=== PATIENT | female | born 1965 | race African-American/Black ===

== ENCOUNTER 2021-07-29 12:26 | Inpatient (IN) | payer MEDICAID ==
[~2021-07-29] VITALS: Ht 160 cm; Wt 100.0 kg
[2021-07-29] MEDS ORDERED: LABETALOL HCL VIAL 20 MG/4 ML VIAL IV ONE (13:30)
[2021-07-29] MEDS ORDERED: LABETALOL 5MG/ML SYR 20 MG/4 ML SYRINGE IV NR (13:31)
[2021-07-29 14:06] LABS: BASOPHILS % 0.2 % (0.0-2.0); HEMATOCRIT. 37.9 % (36.0-48.0); HEMOGLOBIN. 12.5 g/dL (12.0-16.0); LYMPHOCYTES % 26.4 % (20.0-50.0); MEAN CORPUSCULAR HEMOGLOBIN 28.4 pg (28.0-32.0); MEAN CORPUSCULAR VOLUME 86.2 fL (81.0-99.0); MEAN PLATELET VOLUME 9.9 fl (7.4-10.4); MONOCYTES % 6.2 % (2.0-8.0); NEUTROPHILS % 67.2 % (40.0-76.0); PLATELET 248 x1000/uL (130-400)
[2021-07-29 14:09] LABS: CHLORIDE 110 mEq/L (98-107)
[2021-07-30] MEDS ORDERED: ACETAMINOPHEN 325MG TABLET PO PRN (10:15)
[2021-07-30] MEDS ORDERED: ONDANSETRON HCL 4MG/2ML INJ IV PRN (10:15)
[2021-07-30 11:00] VITALS: BP 149/59
[2021-07-30] MEDS ORDERED: B50 GT (13:11)
[2021-07-30] MEDS ORDERED: ABIL5 PO (13:11)
[2021-07-30] MEDS ORDERED: CELECOXIB 200MG CAPSULE PO SCH (15:00)
[2021-07-30] MEDS: AMLODIPINE 10MG TABLET PO SCH (15:23)
[2021-07-30 16:00] VITALS: BP 154/58
[2021-07-30] MEDS ORDERED: DIPHENHYDRAMINE 25MG CAPSULE PO PRN (17:45)
[2021-07-30 20:00] VITALS: BP 162/79
[2021-07-31] VITALS: BP 132/86
[2021-07-31 04:00] VITALS: BP 130/71
[2021-07-31 08:00] VITALS: BP 141/72
[2021-07-31] MEDS ORDERED: ASPIRIN 81MG TABLET PO SCH (09:00)
[2021-07-31] MEDS: AMLODIPINE 10MG TABLET PO SCH (09:00)
[2021-07-31] MEDS ORDERED: AMLO10TA80 PO (11:36)
[2021-07-31 12:00] VITALS: BP 135/75
[2021-07-31 12:33] VITALS: BP 135/75
== END 2021-07-31 13:22 | disposition home or self-care (01) | DRG 199 ==
LOC: ER 12:26 → MICUSO 16:54 → EDBEDREQTM 16:55 → EDBEDREQ 16:55 → 8WST 07-30 11:21
PROVIDERS: ADMIT Internal Medicine; ATTEND Internal Medicine
DX: I16.0 Hypertensive urgency (principal); E44.1 Mild protein-calorie malnutrition; E87.8 Other disorders of electrolyte and fluid balance, not elsewhere classified; R07.89 Other chest pain; E66.9 Obesity, unspecified; M25.512 Pain in left shoulder; Z82.49 Family history of ischemic heart disease and other diseases of the circulatory system; I10 Essential (primary) hypertension; Z68.39 Body mass index [BMI] 39.0-39.9, adult; Z71.3 Dietary counseling and surveillance
CPT/HCPCS: 36415; 71045; 80053; 83880; 84484; 85025; 93005; 93306; 99291; J3490; Q0163

== ENCOUNTER 2024-06-16 09:15 | Emergency (ER) | payer MEDICAID, OTHER ==
[~2024-06-16] VITALS: Ht 157.5 cm; Wt 79.0 kg
[~2024-06-16 09:15] MED LIST: ABIL5 PO; AMLO10TA80 PO; B50 GT
[2024-06-16 09:19] VITALS: O2SAT 99
[2024-06-16] MEDS ORDERED: FLUO20CA33 PO (09:39)
[2024-06-16 10:09] LABS: BASOPHILS % 0.8 % (0.0-2.0); DIFFERENTIAL COMMENT 0; EOSINOPHILS % 0.1 % (0.0-5.0); HEMATOCRIT. 42.6 % (36.0-48.0); HEMOGLOBIN. 13.6 g/dL (12.0-16.0); LYMPHOCYTES % 30.9 % (20.0-50.0); MEAN CORPUSCULAR HEMOGLOBIN 27.5 pg (28.0-32.0); MEAN CORPUSCULAR HGB CONC 31.9 g/dL (31.0-37.0); MEAN PLATELET VOLUME 10.2 fl (7.4-10.4); MONOCYTES % 6.8 % (2.0-8.0); NEUTROPHILS % 61.4 % (40.0-76.0); PLATELET 257 x1000/uL (130-400); RED BLOOD CELL COUNT 4.96 mill/uL (4.2-5.4); RED CELL DISTRIBUTION WIDTH 14.3 % (11.6-14.6); WHITE BLOOD COUNT 6.6 x1000/uL (4.5-11.0)
[2024-06-16 10:11] LABS: CHLORIDE 103 mEq/L (98-107); POTASSIUM 3.5 mEq/L (3.5-5.1); SODIUM 142 mEq/L (136-145)
[2024-06-16 10:13] LABS: CALCIUM 9.6 mg/dL (8.7-10.4); CARBON DIOXIDE 26 mEq/L (21-32)
[2024-06-16 10:18] LABS: CREATININE 0.9 mg/dL (0.6-1.0); GLUCOSE 131 mg/dL (70-105); UREA NITROGEN BLOOD 7 mg/dL (9-23)
[2024-06-16 10:19] LABS: ETHANOL BLOOD < 10 mg/dL (<10)
[2024-06-16 10:20] LABS: ACETAMINOPHEN < 2 ug/mL (10-30)
[2024-06-16 13:29] LABS: CLARITY URINE CLOUDY (CLEAR); COLOR URINE DARK YELLOW (YELLOW); GLUCOSE URINE NEGATIVE (NEGATIVE); KETONES URINE 4+ (NEGATIVE); LEUKOCYTE ESTERASE URINE 3+ (NEGATIVE); NITRITE URINE NEGATIVE (NEGATIVE); OCCULT BLOOD URINE NEGATIVE (NEGATIVE); PROTEIN URINE 1+ (NEGATIVE); SPECIFIC GRAVITY URINE 1.017 (1.005-1.030)
[2024-06-16 14:03] LABS: BACTERIA URINE 4+; SQUAMOUS EPITHELIAL CELL URINE 3+ /lpf (RARE/1+); WBC URINE 50-100 /hpf (0-2); YEAST URINE NONE SEEN
[2024-06-16 14:08] LABS: *AMPHETAMINES SCREEN URINE NEGATIVE (NEGATIVE)
[2024-06-16 14:09] LABS: *BARBITURATES SCREEN URINE NEGATIVE (NEGATIVE); *BENZODIAZEPINES SCREEN URINE NEGATIVE (NEGATIVE); *COCAINE SCREEN URINE NEGATIVE (NEGATIVE); CANNABINOID URINE SCREEN PRESUMPTIVE POSITIVE (NEGATIVE); ECSTASY MDMA SCREEN URINE NEGATIVE (NEGATIVE); METHADONE URINE SCREEN NEGATIVE (NEGATIVE); OPIATES URINE SCREEN NEGATIVE (NEGATIVE); PHENCYCLIDINE URINE SCREEN NEGATIVE (NEGATIVE)
[2024-06-16] MEDS: CEPHALEXIN 250MG CAPSULE PO SCH (15:45)
[2024-06-17 15:23] VITALS: BP 149/90; PULSE 82; RESP 16; TEMP 36.7; O2SAT 100
== END 2024-06-17 15:49 | disposition short-term general hospital (02) ==
LOC: ER 09:15
DX: T43.222A Poisoning by selective serotonin reuptake inhibitors, intentional self-harm, initial encounter (principal); R45.851 Suicidal ideations; I10 Essential (primary) hypertension; E11.9 Type 2 diabetes mellitus without complications; F32.9 Major depressive disorder, single episode, unspecified; Z20.822 Contact with and (suspected) exposure to COVID-19; Z88.6 Allergy status to analgesic agent
CPT/HCPCS: 36415; 80048; 80305; 80307; 80320; 80329; 81003; 85025; 87426; 93005; 99285; G0480